=== PATIENT | female | born 1990 | race Caucasian/White ===

== ENCOUNTER 2024-01-27 04:08 | Emergency (ER) | payer OTHER ==
[2024-01-27 04:29] VITALS: BP 130/73; PULSE 90
== END 2024-01-27 04:44 | disposition home or self-care (01) ==
LOC: MW.ED 04:08
DX: I10 Essential (primary) hypertension (principal); Z75.8 Other problems related to medical facilities and other health care; Z79.899 Other long term (current) drug therapy; Z91.048 Other nonmedicinal substance allergy status; Z88.2 Allergy status to sulfonamides; Z91.018 Allergy to other foods
CPT/HCPCS: 99282; 99283

== ENCOUNTER 2024-04-08 11:03 | Emergency (ER) | payer OTHER ==
[2024-04-08 13:48] VITALS: BP 162/94; PULSE 96
== END 2024-04-08 13:46 | disposition home or self-care (01) ==
LOC: MW.ED 11:03
DX: S42.402A Unspecified fracture of lower end of left humerus, initial encounter for closed fracture (principal); S52.042A Displaced fracture of coronoid process of left ulna, initial encounter for closed fracture; I10 Essential (primary) hypertension; Z79.899 Other long term (current) drug therapy; Z88.2 Allergy status to sulfonamides; Z91.018 Allergy to other foods; Z91.048 Other nonmedicinal substance allergy status; Z75.8 Other problems related to medical facilities and other health care; W18.2XXA Fall in (into) shower or empty bathtub, initial encounter
CPT/HCPCS: 29105; 73080-26-LT; 73080-LT; 73110-26-LT; 73110-LT; 73130-26-LT; 73130-LT; 99283-25